=== PATIENT | male | born 1970 | race Caucasian/White ===

== ENCOUNTER 2016-06-13 23:19 | Emergency (ER) | payer BC ==
[2016-06-14] MEDS ORDERED: LIDOCAINE 2% 20 ML ONE (02:54)
[2016-06-14] MEDS ORDERED: TDaP 0.5 ML VIAL IM.VACC ONE (04:06)
== END 2016-06-14 04:47 | disposition home or self-care (01) ==
LOC: ER 23:19
DX: S61.411A Laceration without foreign body of right hand, initial encounter (principal); W45.8XXA Other foreign body or object entering through skin, initial encounter; Y92.63 Factory as the place of occurrence of the external cause
CPT/HCPCS: 90471